=== PATIENT | male | born 1945 | race Caucasian/White ===

== ENCOUNTER 2017-05-10 06:12 | Day surgery (SDC) | payer OTHER ==
[~2017-05-10] VITALS: Ht 182.9 cm; Wt 88.7 kg
[~2017-05-10 06:12] MED LIST: ATORVASTATIN CA40 MG PO; COQ10100 MG PO; GLUCOSAMINE CHONDROI PO; LISINOPRIL10 MG PO; MONTELUKAST SOD10 MG PO; MULTIPLE VITAMIN PO; VITAMIN D-31000 UNIT PO
--- NOTE | 2017-05-10 07:59 | Provider's Discharge Care Plan ---
Problem, Goal, Plan Problem List 1. Status post colonoscopy Goals: Screening Instructions: Follow up as needed, Take meds as directed, high-fiber diet. Next colonoscopy is 7-10 years
--- NOTE | 2017-05-10 08:03 | Operative Report ---
Operative Report Date of Surgery: 05/10/17 Preoperate Diagnosis: history of colon polyps Postoperative Diagnosis: normal colonoscopy Surgeon: David Ku MD Fleet Manager/Dispatch Surgeon: none Procedure Performed: Colonoscopy Anesthesia: TIVA Indications: 72-year-old male 2 years ago underwent colonoscopy was noted to have a polyp of the cecum which was removed. He returns this asymptomatic for surveillance. FINDINGS: Normal appearing cecum, ascending, transverse, descending, sigmoid colon. Rectal normal. No evidence of polyps. Surgical Technique: Patient was brought to the operating room. Patient was placed in the left lateral decubitus position. Patient was administered TIVA by anesthesia. Once anesthesia had taken effect digital rectal examination was performed. No masses or stenosis was appreciated. This was then followed by the passage of a fiberoptic video flexible Olympus colonoscope. The scope was then passed without difficulty and the cecum was visualized. The cecum was identified by anatomical landmarks and anterior abdominal wall ballottement. On withdrawing the scope the aforementioned findings were noted. The scope was then retroflexed and a good view of the rectal wall obtained. The scope was then completely withdrawn. Patient tolerated procedure well. Patient was transferred to the recovery room in stable condition. There were no intraoperative or anesthetic complications.
[2017-05-10 13:54] VITALS: BP 142/79
== END 2017-05-10 09:24 | disposition home or self-care (01) ==
LOC: OR SRH 06:12 → SCU SRH 06:13 → OR SRH 07:30
PROVIDERS: Specialist
PROC: 0DJD8ZZ Inspection of Lower Intestinal Tract, Via Natural or Artificial Opening Endoscopic (ICD-10-PCS; principal; 2017-05-10 07:30)
DX: Z12.11 Encounter for screening for malignant neoplasm of colon (principal); Z86.010 Personal history of colon polyps; I10 Essential (primary) hypertension; J45.909 Unspecified asthma, uncomplicated
CPT/HCPCS: 29229; 29240; 50004; 60001; 83526